=== PATIENT | male | born 1990 | race Asian ===

== ENCOUNTER 2019-04-03 09:53 | Emergency (ER) | payer BC ==
[2019-04-03] MEDS ORDERED: Adacel (T-DAP) 0.5 ML SYRINGE ONE (10:41)
[2019-04-03] MEDS ORDERED: Triple Antibiotic Oint 1 GM Packet ONE (11:26)
== END 2019-04-03 11:41 | disposition short-term general hospital (02) ==
LOC: BURERS 09:53
DX: T20.212A Burn of second degree of left ear [any part, except ear drum], initial encounter (principal); T20.20XA Burn of second degree of head, face, and neck, unspecified site, initial encounter; X08.8XXA Exposure to other specified smoke, fire and flames, initial encounter
CPT/HCPCS: 90471; 90715